=== PATIENT | male | born 1970 | race Caucasian/White ===

== ENCOUNTER 2017-05-06 19:02 | Emergency (ER) | payer BC, OTHER ==
[~2017-05-06 19:02] MED LIST: LOPRESSOR DPS12.5 MG PO; TYLENOL DPS325 MG PO; ULTRAM DPS50 MG PO; XARELTO20 MG PO
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
== END 2017-05-06 23:40 | disposition home or self-care (01) ==
LOC: ER 19:02
DX: S16.1XXA Strain of muscle, fascia and tendon at neck level, initial encounter (principal); R20.0 Anesthesia of skin; I48.91 Unspecified atrial fibrillation; Z98.1 Arthrodesis status; V49.40XA Driver injured in collision with unspecified motor vehicles in traffic accident, initial encounter; Y92.410 Unspecified street and highway as the place of occurrence of the external cause